=== PATIENT | female | born 1985 | race Two or more races ===

== ENCOUNTER 2016-10-31 13:01 | Emergency (ER) | payer OTHER ==
[~2016-10-31] VITALS: Ht 154.9 cm; Wt 83.0 kg
[2016-10-31 14:00] VITALS: BP 116/57
--- NOTE | 2016-10-31 14:00 | RAD ---
Exam performed :Right ankle 3 views Clinical indication: Twisting injury on 10/27/16, continued lateral side pain Date of service: 10/31/16 .Comparison:None available Finding: AP, oblique and lateral radiographs of the ankle reveal the osseous structures to be intact and well aligned. The joint spaces are well-preserved. The articular margins are smooth. Evidence of fracture or dislocation is not identified. Impression: Radiographically normal right ankle.
--- NOTE | 2016-10-31 14:34 | PHYS DOC ---
Past Medical History Past Medical History: No Pertinent History Past Surgical History: Hysterectomy Alcohol Use: None Drug Use: None Adult General Chief Complaint Chief Complaint: ANKLE PROBLEM HPI HPI Patient is a 31 year old female presents emergency department stating that on she was walking out of her house to go outside when she stepped off the step in stable right ankle. She states that she was seen in urgent care and had x-rays completed the were negative. She states that they put on crutches for 3 weeks and told her to keep it elevated with ice packs. Patient states that she has been having increased swelling and increased pain and discomfort. Patient states that whenever she is up ambulating with her crutches she has increased pain as well as swelling, she has been taken ibuprofen with very little pain relief. Patient denies any numbness or tingling down into the foot. She denies having an orthopedic consult. She denies any further symptoms at this time. Review of Systems Review of Systems Constitutional: Denies fever or chills [] Eyes: Denies change in visual acuity, redness, or eye pain [] HENT: Denies nasal congestion or sore throat [] Respiratory: Denies cough or shortness of breath [] Cardiovascular: No additional information not addressed in HPI [] GI: Denies abdominal pain, nausea, vomiting, bloody stools or diarrhea [] : Denies dysuria or hematuria [] Musculoskeletal: Denies back pain. C/o right lateral ankle pain Integument: Denies rash or skin lesions [] Neurologic: Denies headache, focal weakness or sensory changes [] Allergies Allergies Allergies Coded Allergies Type Severity Reaction Last Updated Verified No Known Drug Allergies 12/30/13 No Physical Exam Physical Exam Constitutional: Well developed, well nourished, no acute distress, non-toxic appearance. [] HENT: Normocephalic, atraumatic, bilateral external ears normal, oropharynx moist, no oral exudates, nose normal. [] Eyes: PERRLA, EOMI, conjunctiva normal, no discharge. [] Neck: Normal range of motion, no tenderness, supple, no stridor. [] Cardiovascular:Heart rate regular rhythm, no murmur [] Lungs & Thorax: Bilateral breath sounds clear to auscultation [] Skin: Warm, dry, no erythema, no rash. [] Back: No tenderness Extremities: Right lateral ankle tenderness, no cyanosis, no clubbing, ROM intact, no edema. No swelling, or discoloration noted Neurologic: Alert and oriented X 3, normal motor function, normal sensory function, no focal deficits noted. [] Psychologic: Affect normal, judgement normal, mood normal. [] Current Patient Data Vital Signs Vital Signs Date Time Temp Pulse Resp B/P Pulse Ox O2 Delivery O2 Flow Rate FiO2 10/31/16 14:00 98.1 70 18 98 Room Air 98.1 EKG EKG [] Radiology/Procedures Radiology/Procedures [][facility] [address] [place] [address] IMAGING REPORT Signed PATIENT: ESCOBAR PITTMAN ACCOUNT: [id number] : 1985 LOCATION: ER AGE: 31 SEX: F EXAM STATUS: REG ER ORD. PHYSICIAN: CYN BETH NP REASON: twisted right ankle on 10/27 PROCEDURE: ANKLE RIGHT 3V Exam performed :Right ankle 3 views Clinical indication: Twisting injury on 10/27/16, continued lateral side pain Date of service: 10/31/16 .Comparison:None available Finding: AP, oblique and lateral radiographs of the ankle reveal the osseous structures to be intact and well aligned. The joint spaces are well-preserved. The articular margins are smooth. Evidence of fracture or dislocation is not identified. Impression: Radiographically normal right ankle. DICTATED and SIGNED BY: YASIR LOZADA MD DATE: 10/31/16 1627 CC: CYN BETH NP; GLENNY BUCKLEY MD ~ Course & Med Decision Making Course & Med Decision Making Pertinent Labs and Imaging studies reviewed. (See chart for details) Patient will be placed in an Raymond wrap with a Air-Stirrup splint. Patient will continue to use crutches. Recommended ice packs on 20 minutes off 20 minutes several times a day elevation as much as possible. Also recommended orthopedic follow-up within the next week. Since symptoms to return back to emergency department been provided. Encourage patient to use ibuprofen 800 mg every 8 hours with food stop taking if he developed upset stomach. Patient agrees with discharge instructions treatment regimens and follow-up recommendations. [] Dragon Disclaimer Dragon Disclaimer This electronic medical record was generated, in whole or in part, using a voice recognition dictation system. Departure Departure Impression: Primary Impression: Right ankle sprain Disposition: 01 HOME, SELF-CARE Condition: STABLE Referrals: GLENNY BUCKLEY MD (PCP) Patient Instructions: Ankle Sprain, [id number] Additional Instructions: Activity as tolerated. Ice packs on 20 minutes off 20 minutes several times a day. Elevation as much as possible. Wear the Raymond wrap for the next 5-7 days in the Air-Stirrup splint for the next 7 -10 days. Continue to use the crutches until you follow-up with orthopedic with no weightbearing to the right ankle. Ibuprofen 800 mg every 8 hours. Make sure you take this with food as it may cause an upset stomach. If this would happen stop taking the medication. Follow-up with orthopedic within the next week. Return back to emergency Department for sign symptoms of become worse. CYN BETH NP Oct 31, 2016 14:34
== END 2016-10-31 14:55 | disposition home or self-care (01) ==
LOC: ER 13:01
DX: S93.401A Sprain of unspecified ligament of right ankle, initial encounter (principal); X50.0XXA Overexertion from strenuous movement or load, initial encounter; Y93.89 Activity, other specified; Y92.89 Other specified places as the place of occurrence of the external cause; Y99.8 Other external cause status
CPT/HCPCS: 29515; 73610; 99284-25

== ENCOUNTER → 2019-08-25 | Outpatient (CLI) | payer OTHER ==
--- NOTE | 2019-08-25 16:58 | RAD ---
EXAM: Thyroid ultrasound HISTORY: Thyroid nodule. COMPARISON: None. FINDINGS: Sonographic evaluation of the thyroid gland was performed. The right lobe measures 5.2 x 2.2 x 1.9 cm. The parenchyma is homogeneous without focal lesions. The left lobe measures 4.0 x 1.2 x 1.2 cm. The parenchyma is homogeneous. An anechoic cyst in the upper pole is well marginated and measures 10 x 7 mm. The isthmus measures 4 mm. IMPRESSION: 1. Benign 10 mm left lobe cyst. No suspicious lesions. Electronically signed by: Silvia Rodrigues MD (08/25/2019 4:55 PM) [facility]
== END | disposition home or self-care (01) ==
LOC: US 15:16
PROVIDERS: ATTEND Family Medicine
DX: E04.1 Nontoxic single thyroid nodule (principal)
CPT/HCPCS: 76536